=== PATIENT | male | born 1950 | race Caucasian/White ===

== ENCOUNTER 2021-03-09 11:11 | Emergency (ER) | payer MEDICARE, OTHER ==
[2021-03-09 11:50] VITALS: BP 134/78; PULSE 83; O2SAT 99
[2021-03-09 12:30] LABS: Appearance CLEAR (CLEAR); Bilirubin NEGATIVE (NEGATIVE); Blood NEGATIVE Ery/ul (0-5); Glucose 150 mg/dL (NEGATIVE); Ketones NEGATIVE (NEGATIVE); Leukocyte Esterase NEGATIVE (NEGATIVE); Mucus SLIGHT /HPF (NEGATIVE); Nitrite NEGATIVE (NEGATIVE); Protein,Urine Dip NEGATIVE (Negative); Specific Gravity 1.026 (1.005-1.025); Urobilinogen NEGATIVE mg/dL (0-1); WBC 0-2 /HPF (0-5)
[2021-03-09 12:33] LABS: Bacteria NONE SEEN /HPF (NEGATIVE)
--- NOTE | 2021-03-09 12:40 | XRAY ---
Indication: Double vision 3 days. Multiple contiguous axial images obtained through the head without contrast. Comparison: None Normal appearing brain parenchyma, ventricles, and bony calvarium for patient's age. Visualized paranasal sinuses and mastoid air cells are clear. Impression: Normal CT head without contrast exam.
[2021-03-09 12:48] LABS: Absolute Neutrophil Ct (ANC) 2.78 (1.4-6.9); BASOPHIL % 0.8 % (0.0-0.4); Basophil (Absolute #) 0.03 (0-0.4); Eosinophil % 1.9 % (0.00-5.0); Eosinophil (Absolute #) 0.07 (0-0.5); Hematocrit 36.7 % (42-50); Hemoglobin 11.9 gm/dl (12.5-18.0); Lymphocyte (Absolute #) 0.47 (1.0-4.6); Mean Cell Volume 93.6 fl (78-100); Mean Corpuscular Hemoglobin 30.4 pg (26-32); Mean Corpuscular Hgb Concent. 32.4 g/dl (32-36); Mean Platelet Volume 9.1 fl (7.5-11.0); Monocyte (Absolute #) 0.26 (0.0-1.3); Monocytes % 7.2 % (0.0-12.0); Neutrophil % 77.1 % (36.0-66.0); Platelet Count 208 K/mm3 (150-450); Red Blood Count 3.92 M/mm3 (4.1-5.6); Red Cell Distribution Width 13.9 % (11.5-14.0); White Blood Count 3.6 K/mm3 (4.0-10.5)
--- NOTE | 2021-03-09 12:51 | ERPHSYRPT ---
- History of Present Illness Time Seen by Provider: 03/09/21 11:23 Source: patient Exam Limitations: no limitations Patient Subjective Stated Complaint: Pt has prostate cancer and it had metastasized to his spine last year and now he has double vision and he called his oncologist and he wanted him to come here and get an MRI Triage Nursing Assessment: Pt was brought to the ER by his daughter, erin little, rates headache as 03/26, has had a dull headache on the right side for the past 3 weeks, pulses normal, denies any other issues Physician History: 70 years old male with history of hyperlipidemia, diabetes mellitus, prostate cancer status post resection, chemo and later metastasis to spine treated with radiation therapy presented in the ER with chief complaint of double vision off and on for last 1 week. Patient reports initially it was on the right eye and then gradually having in both eye. Initially was getting better with closing 1 eye but it is not going away with closing either eye. Denies any numbness tingling or focal weakness. No difficulty speech. Also complaining of mild dull aching headache on the right side temporal area. No chest pain palpitations or shortness of breath reported. No difficulty ambulation. Patient called her radiation oncologist who wanted to have work-up done incl uding MRIs to rule out mets. Timing/Duration: week(s) (1), intermittent, gradual onset, worse Severity: moderate Character of Deficits: other (Double vision) Deficits: no difficulties Baseline/Normal Cognition: alert oriented x 3 Current Cognition: alert oriented x 3 Associated Symptoms: vision changes, headache, No loss of consciousness, No nausea, No vomiting, No weakness, No insomnia, No numbness/tingling in legs/feet, No paresthesia, No seizures, No slurred speech, No trouble walking, No chest pain Allergies/Adverse Reactions: No Known Drug Allergies Allergy (Verified 03/09/21 11:50) Home Medications: Aspirin 81 mg PO DAILY 03/09/21 [History] Atorvastatin Calcium 20 mg PO DAILY 03/09/21 [History] Metformin HCl 500 mg [Glucophage 500 MG] 500 mg PO BIDWM 03/09/21 [History] Travel Risk - International Travel Have you traveled outside of the country in past 3 weeks: No - Coronavirus Screening Are you exhibiting any of the following symptoms?: No Close contact with a COVID-19 positive Pt in past 14-21 Days: No - Vaccine Status Have you recieved a Covid-19 vaccination: Yes 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 - Vaccination Dates Date of 2cond Vaccination (if applicable): 10/19/2020 - Review of Systems Constitutional: No Symptoms Eyes: Vision Changes Ears, Nose, & Throat: No Symptoms Respiratory: No Symptoms Cardiac: No Symptoms Abdominal/Gastrointestinal: No Symptoms Genitourinary Symptoms: No Symptoms Musculoskeletal: No Symptoms Skin: No Symptoms Neurological: Headache Psychological: No Symptoms Endocrine: No Symptoms Hematologic/Lymphatic: No Symptoms Immunological/Allergic: No Symptoms - Past Medical History Pertinent Past Medical History: Yes Cardiac History: High Cholesterol Endocrine Medical History: Diabetes Type II Male Reproductive Disorders: Prostate Cancer - Past Surgical History Past Surgical History: Yes Male Surgical History: Prostate Surgery - Social History Smoking Status: Never smoker Exposure to second hand smoke: No Drug Use: none Patient Lives Alone: No - Nursing Vital Signs Nursing Vital Signs: Initial Vital Signs Temperature 96.3 F 03/09/21 11:49 Pulse Rate 83 03/09/21 11:49 Blood Pressure 134/78 03/09/21 11:49 O2 Sat by Pulse Oximetry 99 03/09/21 11:49 Pain Scale Pain Intensity 1 - Alee Coma Scale Best Eye Response (Alee): (4) open spontaneously Best Verbal Response (Carlton): (5) oriented Best Motor Response (Alee): (6) obeys commands Alee Total: 15 - Physical Exam General Appearance: no apparent distress, alert Eye Exam: bilateral eye: normal inspection, PERRL, EOMI Ears, Nose, Throat Exam: normal ENT inspection, pharynx normal Neck Exam: normal inspection, non-tender, supple, full range of motion Respiratory: normal breath sounds, lungs clear Cardiovascular: regular rate/rhythm, normal heart sounds Gastrointestinal: soft, normal bowel sounds, No tenderness Back Exam: normal inspection, normal range of motion Extremity Exam: normal inspection, normal range of motion Mental Status: alert, oriented x 3, cooperative packager and strapper Exam: normal hearing, normal speech, PERRL (Without bruit), No facial asymmetry (Yeah) Coordination/Gait: normal finger to nose, normal gait, normal cerebellar function, negative Romberg's sign DTR: bicep (R): 2+, bicep (L): 2+, knee (R): 2+, knee (L): 2+ Skin Exam: normal color SpO2 Interpretation: normal SpO2: 99 O2 Delivery: Room Air - Course EKG Interpreted by Me: RATE (82), Sinus Rhythm, NORMAL AXIS, NORMAL INTERVALS, Non-specific ST Changes Ordered Tests: Active Orders 24 hr Category Date Time Status EKG-ER Only STAT Care 03/09/21 12:17 Completed NPO (ED) STAT Care 03/09/21 12:16 Completed Visual Acuity STAT Care 03/09/21 11:39 Completed HEAD WITHOUT CONTRAST [CT] Stat Exams 03/09/21 12:16 Completed CBC W DIFF Stat Lab 03/09/21 12:41 Completed CMP Stat Lab 03/09/21 12:41 Received PROTIME WITH INR Stat Lab 03/09/21 12:41 Completed PTT Stat Lab 03/09/21 12:41 Completed TROPONIN Q3H Lab 03/09/21 12:30 Received TROPONIN Q3H Lab 03/09/21 15:30 Ordered TROPONIN Q3H Lab 03/09/21 18:30 Ordered TROPONIN Q3H Lab 03/09/21 21:30 Ordered UA W/RFX UR CULTURE Stat Lab 03/09/21 12:16 Completed Lab/Rad Data: Laboratory Result Diagrams 03/09/21 12:41 Laboratory Results 03/09/21 03/09/21 03/09/21 Range/Units 12:41 12:41 12:16 WBC 3.6 L (4.0-10.5) K/mm3 RBC 3.92 L (4.1-5.6) M/mm3 Hgb 11.9 L (12.5-18.0) gm/dl Hct 36.7 L (42-50) % MCV 93.6 (78-100) fl MCH 30.4 (26-32) pg MCHC 32.4 (32-36) g/dl RDW 13.9 (11.5-14.0) % Plt Count 208 (150-450) K/mm3 MPV 9.1 (7.5-11.0) fl Gran % 77.1 H (36.0-66.0) % Eos # (Auto) 0.07 (0-0.5) Absolute Lymphs (auto) 0.47 L (1.0-4.6) Absolute Monos (auto) 0.26 (0.0-1.3) Lymphocytes % 13.0 L (24.0-44.0) % Monocytes % 7.2 (0.0-12.0) % Eosinophils % 1.9 (0.00-5.0) % Basophils % 0.8 (0.0-0.4) % Absolute Granulocytes 2.78 (1.4-6.9) Basophils # 0.03 (0-0.4) PT 11.9 (9.4-12.5) SECONDS INR 1.01 (0.8-3.0) APTT 26.2 (25.1-36.5) SECONDS Urine Color YELLOW (YELLOW) Urine Appearance CLEAR (CLEAR) Urine pH 5.0 (5-6) Ur Specific [place] 1.026 (1.005-1.025) Urine Protein NEGATIVE (Negative) Urine Ketones NEGATIVE (NEGATIVE) Urine Blood NEGATIVE (0-5) Clint/ul Urine Nitrite NEGATIVE (NEGATIVE) Urine Bilirubin NEGATIVE (NEGATIVE) Urine Urobilinogen NEGATIVE (0-1) mg/dL Ur Leukocyte Esterase NEGATIVE (NEGATIVE) Urine WBC (Auto) 0-2 (0-5) /HPF Urine RBC (Auto) NONE (0-2) /HPF U Epithel Cells (Auto) NONE (FEW) /HPF Urine Bacteria (Auto) NONE SEEN (NEGATIVE) /HPF Urine Mucus (Auto) SLIGHT (NEGATIVE) /HPF Urine Culture Reflexed NO (NO) Urine Glucose 150 (NEGATIVE) mg/dL - Progress Progress: unchanged Progress Note: 03/09/21 12:49 70 years old is evaluated for diplopia. No other neuro deficit. CT head is negative. Discussed with Dr. Chong Tran oncologist, reviewed history, he recommended obtaining MRI with and without contrast because of concern for mets. No MRI services are available here until next week because of holidays. Wanted me to transfer patient to [facility] at this point. He has called [facility] and they can call in MRI if patient is there. He recommended patient to be discharged and he will walk into [facility] ER. Patient has no difficulty ambulation and no other neuro symptoms. Patient is here and I have discussed with her and patient as well and she is going to take him to [facility] ER now which is unfortunately the only way to get MRIs done. 03/09/21 12:51 Discussed with : Other Counseled pt/family regarding: lab results, diagnosis, need for follow-up, rad results - Departure Departure Disposition: Home Clinical Impression: Diplopia Condition: Stable Critical Care Time: No Referrals: GURVINDER COBIAN MD [Primary Care Provider] - Follow up/PCP as directed
[2021-03-09 12:55] LABS: INR 1.01 (0.8-3.0); PROTIME 11.9 SECONDS (9.4-12.5)
[2021-03-09 12:58] LABS: PTT 26.2 SECONDS (25.1-36.5)
[2021-03-09 13:10] LABS: ALBUMIN 4.3 g/dL (3.5-5.0); ALKALINE PHOSPHATASE 74 U/L (38-126); BLOOD UREA NITROGEN 13 mg/dL (9-20); CHLORIDE 102 mmol/L (98-107); Calcium 8.9 mg/dL (8.4-10.2); Carbon Dioxide 28 mmol/L (22-30); Creatinine 1 0.66 mg/dL (0.66-1.25); EST GLOMERULAR FILTRATION RATE > 60.0 ML/MIN; Glucose 161 mg/dL (74-106); Potassium 3.9 mmol/L (3.5-5.1); SGOT/AST 27 U/L (17-59); SGPT/ALT 20 U/L (0-50); SODIUM 138 mmol/L (137-145); Total Protein 6.7 g/dL (6.3-8.2)
== END 2021-03-09 13:17 | disposition home or self-care (01) ==
LOC: ED 11:11
DX: H53.2 Diplopia (principal); R51.9 Headache, unspecified; E78.5 Hyperlipidemia, unspecified; E11.9 Type 2 diabetes mellitus without complications; Z79.84 Long term (current) use of oral hypoglycemic drugs
CPT/HCPCS: 36415; 70450; 80053; 81001; 84484; 85025; 85610; 85730; 93005; 99284

== ENCOUNTER 2024-11-27 07:23 | Emergency (ER) | payer MEDICARE, OTHER ==
--- NOTE | 2024-11-27 07:28 | ERPHSYRPT ---
- History of Present Illness Time Seen by Provider: 11/27/24 07:28 Source: patient, family Exam Limitations: no limitations Physician History: This is a 74-year-old white male patient who arrives by private vehicle and is a patient Dr. Cobian and has a history of prostate cancer status post chemoradiation. The last radiation treatment was 2 or 3 years ago. Patient was seen in our emergency department on 11/10/2024 with similar symptoms. Except at that time he had hematuria. This time he does not have hematuria. He does have suprapubic pain and pressure. He has reported to us that the last urine output was last evening. Patient is currently not on any antibiotics. On 11/10/2024, he was given a prescription for Cipro antibiotic. They performed a straight cath last visit. He does not want a Barry catheter in place. He will agree to the straight cath to obtain urine specimen as well as to drain his bladder. Patient has a history of hypertension, diabetes, hyperlipidemia. Patient has no known drug allergies. He denies chest pain he knee denies shortness of breath. He has not had a fever. Timing/Duration: today Activites at Onset: none Quality: pressure (Suprapubic region) Onset Location: suprapubic Severity of Pain-Max: mild (To moderate) Severity of Pain-Current: mild (To moderate) Modifying Factors: Improves With: nothing Associated Symptoms: other (Urinary retention with suprapubic pressure) Sexual intercourse history: non-contributory Allergies/Adverse Reactions: No Known Drug Allergies Allergy (Verified 11/27/24 07:34) Home Medications: Aspirin 81 mg PO DAILY 03/09/21 [History] Calcium Carbonate [Calcium] 1,200 mg PO DAILY 11/10/24 [History] Gabapentin 300 mg PO BID 11/10/24 [History] Metformin HCl 850 mg [Glucophage 850 MG] 850 mg PO BID 11/10/24 [History] Rosuvastatin Calcium 5 mg PO DAILY 11/10/24 [History] Hx Tetanus, Diphtheria Vaccination/Date Given: No Hx Influenza Vaccination/Date Given: No Hx Pneumococcal Vaccination/Date Given: No Travel Risk - International Travel Have you traveled outside of the country in past 3 weeks: No - Emerging Infectious Disease Are you exhibiting symptoms associated with any current EIDs: No - Past Medical History Pertinent Past Medical History: Yes Cardiac History: High Cholesterol Endocrine Medical History: Diabetes Type II Male Reproductive Disorders: Prostate Cancer - Past Surgical History Past Surgical History: Yes Male Surgical History: Prostate Surgery - Social History Smoking Status: Never smoker Exposure to second hand smoke: No Drug Use: none - Social Determinants of Health Will the patient participate in the screening: Yes Do you worry about a steady place to live?: No In the past 12 months,have you had to go without utilities?: No Transportation Issues: No Has anyone in your support network made you feel unsafe?: No Have you or anyone in your house had to go w/o enough food: No - Review of Systems Constitutional: No Symptoms Eyes: No Symptoms Ears, Nose, & Throat: No Symptoms Respiratory: No Symptoms Cardiac: No Symptoms Abdominal/Gastrointestinal: Abdominal Pain (Suprapubic pressure) Genitourinary Symptoms: Urinary Retention Musculoskeletal: No Symptoms Skin: No Symptoms Neurological: No Symptoms Psychological: No Symptoms Endocrine: No Symptoms Hematologic/Lymphatic: No Symptoms Immunological/Allergic: No Symptoms All Other Systems: Reviewed and Negative - Nursing Vital Signs Nursing Vital Signs: Initial Vital Signs Temperature 97.3 F 11/27/24 07:29 Pulse Rate 103 H 11/27/24 07:29 Blood Pressure 167/109 11/27/24 07:29 O2 Sat by Pulse Oximetry 99 11/27/24 07:29 Pain Scale Pain Intensity 8 - Physical Exam General Appearance: no apparent distress, alert Eye Exam: PERRL/EOMI, eyes nml inspection Ears, Nose, Throat Exam: normal ENT inspection, moist mucous membranes Neck Exam: normal inspection, non-tender, supple, full range of motion Respiratory Exam: normal breath sounds, lungs clear, airway intact, No chest tenderness, No respiratory distress Cardiovascular Exam: regular rate/rhythm, normal heart sounds, normal peripheral pulses Gastrointestinal/Abdomen Exam: soft, normal bowel sounds, tenderness (Suprapubic pressure) Rectal Exam: not done Back Exam: normal inspection, normal range of motion, No CVA tenderness, No vertebral tenderness Extremity Exam: normal inspection, normal range of motion, pelvis stable Neurologic Exam: alert, oriented x 3, cooperative, client support associate II-XII nml as tested, nml cerebellar function, nml station & gait, sensation nml Skin Exam: normal color, warm, dry Lymphatic Exam: No adenopathy SpO2 Interpretation: normal O2 Delivery: Room Air - Course Nursing assessment & vital signs reviewed: Yes Ordered Tests: Active Orders 24 hr Category Date Time Status Straight Cath STAT Care 11/27/24 07:37 Active CULTURE,URINE Stat Lab 11/27/24 09:01 Received UA W/RFX UR CULTURE Stat Lab 11/27/24 09:01 Completed Lab/Rad Data: Laboratory Results 11/27/24 Range/Units 09:01 Urine Color Yellow (Yellow) Urine Appearance Clear (Clear) Urine pH 5.5 (4.6-8.0) Ur Specific [place] 1.020 (1.005-1.030) Urine Protein Trace A (Negative) Urine Glucose (UA) Negative (Negative) mg/dL Urine Ketones Trace A (Negative) Urine Blood Moderate A (Negative) Urine Nitrite Negative (Negative) Urine Bilirubin Negative (Negative) Urine Urobilinogen 1.0 A (0.2) mg/dL Ur Leukocyte Esterase Trace A (Negative) U Hyaline Cast (Auto) 3-5 A (0-2) /LPF Urine Microscopic RBC 51-100 A (0-5) /HPF Urine Microscopic WBC 0-2 (0-5) /HPF Ur Epithelial Cells None Seen (None Seen) /HPF Urine Bacteria None Seen (None Seen) /HPF Urine Culture Reflexed ORDERED SEPARATELY (NO) - Progress Progress: improved, re-examined Progress Note: 11/27/24 07:39 My medical decision making and the assignment of low complexity of this patient's medical issue today is based on review of the patient's past medical history, review the patient's medication list, review the patient drug allergy list, history present illness and physical findings on examination. The workup in this patient will be straight catheterization to relieve the bladder pressure, drained the bladder and obtain urine specimen for urinalysis. Differential diagnosis includes but is not limited to urinary tract infection, prostatitis, cystitis, urinary retention 11/27/24 09:39 I interpreted the patient's laboratory data results. Based on the laboratory data results, there are no acute, emergent medical issues. I reexamined the patient and he has significant relief after straight catheterization. He is actually now making urine and passing urine on his own. It did appear so there might been a blood clot present that actually caused the temporary urinary retention. I will not place him on any antibiotics. Will wait for the culture results. There are no bacteria seen and no evidence of an acute urinary tract infection at this time. Counseled pt/family regarding: lab results, diagnosis, need for follow-up Medical Desision Making - Diagnostic Testing Diagnostic test were ordered, analyzed, and reviewed by me: Yes - Risk of complications Low Risk: Low risk of morbidity from additional dx testing or treatment - Departure Departure Disposition: Home Clinical Impression: Urinary retention Condition: Stable Critical Care Time: No Referrals: GURVINDER COBIAN MD [Primary Care Provider, [facility]] - Follow up/PCP as directed Additional Instructions: Drink plenty of fluids. Call your urologist and primary care provider on 11/29/2024, to make a follow-up to be seen in the next 3 to 5 days. In addition, discussed the possibility of arranging self catheterization if this scenario recurs
[2024-11-27 07:34] VITALS: PULSE 103; TEMP 97.3
[2024-11-27 09:13] LABS: Glucose, Urine Negative (Negative); Protein,Urine Dip Trace (Negative); RBC 51-100 /HPF (0-5); WBC 0-2 /HPF (0-5)
[2024-11-27 10:14] VITALS: BP 135/78; O2SAT 96
== END 2024-11-27 10:21 | disposition home or self-care (01) ==
LOC: ED 07:23
DX: R33.9 Retention of urine, unspecified (principal); R10.2 Pelvic and perineal pain; I10 Essential (primary) hypertension; E11.9 Type 2 diabetes mellitus without complications; Z79.84 Long term (current) use of oral hypoglycemic drugs; Z79.899 Other long term (current) drug therapy

== ENCOUNTER 2024-12-03 09:15 | Emergency (ER) | payer MEDICARE, OTHER ==
[2024-12-03 09:31] VITALS: BP 152/91; PULSE 107; RESP 18; TEMP 97.8; O2SAT 98
--- NOTE | 2024-12-03 09:35 | ERPHSYRPT ---
- History of Present Illness Time Seen by Provider: 12/03/24 09:29 Source: patient Exam Limitations: no limitations Physician History: This is a 74-year-old white male patient who returns to the emergency department with recurrent urinary retention. We have seen him 3 times in the emergency department for the same issue. He is a patient of Dr. Cobian. He has an appointment to see a urologist within the next couple of weeks. His last visit here was on 11/27/2024. At his last time of urination was around midnight, approximately 9-1/2 hours ago. Patient is feeling a lot of pressure and discomfort in the suprapubic region. Again, he only wants to have straight c atheterization and the catheter not to be left in place. Patient has a history of diabetes and hyperlipidemia. 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 Timing/Duration: today Activites at Onset: none Quality: aching, pressure Onset Location: suprapubic Severity of Pain-Max: moderate Severity of Pain-Current: moderate Modifying Factors: Improves With: nothing Associated Symptoms: abdominal pain (Suprapubic region) Sexual intercourse history: non-contributory Allergies/Adverse Reactions: No Known Drug Allergies Allergy (Verified 11/27/24 07:34) Home Medications: Aspirin 81 mg PO DAILY 03/09/21 [History] Calcium Carbonate [Calcium] 1,200 mg PO DAILY 11/10/24 [History] Gabapentin 300 mg PO BID 11/10/24 [History] Metformin HCl 850 mg [Glucophage 850 MG] 850 mg PO BID 11/10/24 [History] Rosuvastatin Calcium 5 mg PO DAILY 11/10/24 [History] Hx Tetanus, Diphtheria Vaccination/Date Given: No Hx Influenza Vaccination/Date Given: No Hx Pneumococcal Vaccination/Date Given: No Travel Risk - International Travel Have you traveled outside of the country in past 3 weeks: No - Emerging Infectious Disease Are you exhibiting symptoms associated with any current EIDs: No - Past Medical History Pertinent Past Medical History: Yes Cardiac History: High Cholesterol Endocrine Medical History: Diabetes Type II Male Reproductive Disorders: Prostate Cancer - Past Surgical History Past Surgical History: Yes Male Surgical History: Prostate Surgery - Social History Smoking Status: Never smoker Exposure to second hand smoke: No Drug Use: none - Social Determinants of Health Will the patient participate in the screening: Yes Do you worry about a steady place to live?: No In the past 12 months,have you had to go without utilities?: No Transportation Issues: No Has anyone in your support network made you feel unsafe?: No Have you or anyone in your house had to go w/o enough food: No - Review of Systems Constitutional: No Symptoms Eyes: No Symptoms Ears, Nose, & Throat: No Symptoms Respiratory: No Symptoms Cardiac: No Symptoms Abdominal/Gastrointestinal: Abdominal Pain (Suprapubic region pressure and achiness) Genitourinary Symptoms: Urinary Retention Musculoskeletal: No Symptoms Skin: No Symptoms Neurological: No Symptoms Psychological: No Symptoms Endocrine: No Symptoms Hematologic/Lymphatic: No Symptoms Immunological/Allergic: No Symptoms All Other Systems: Reviewed and Negative - Nursing Vital Signs Nursing Vital Signs: Initial Vital Signs Temperature 97.8 F 12/03/24 09:16 Pulse Rate 107 H 12/03/24 09:16 Respiratory Rate 18 12/03/24 09:16 Blood Pressure 152/91 12/03/24 09:16 O2 Sat by Pulse Oximetry 98 12/03/24 09:16 Pain Scale Pain Intensity 3 - Physical Exam General Appearance: no apparent distress, alert, anxiety, thin Eye Exam: PERRL/EOMI, eyes nml inspection Ears, Nose, Throat Exam: normal ENT inspection, moist mucous membranes Neck Exam: normal inspection, non-tender, supple, full range of motion Respiratory Exam: normal breath sounds, lungs clear, airway intact, No chest tenderness, No respiratory distress Cardiovascular Exam: regular rate/rhythm, normal heart sounds, normal peripheral pulses Gastrointestinal/Abdomen Exam: soft, normal bowel sounds, tenderness (Suprapubic tenderness and achiness), No guarding, No rebound Rectal Exam: not done Back Exam: normal inspection, normal range of motion, No CVA tenderness, No vertebral tenderness Extremity Exam: normal inspection, normal range of motion, pelvis stable Neurologic Exam: alert, oriented x 3, cooperative, improvement leader II-XII nml as tested, nml cerebellar function, nml station & gait, sensation nml Skin Exam: normal color, warm, dry Lymphatic Exam: No adenopathy SpO2 Interpretation: normal O2 Delivery: Room Air - Course Nursing assessment & vital signs reviewed: Yes - Progress Progress: unchanged, re-examined Progress Note: 12/03/24 09:33 My medical decision making and the assignment of low complexity of this patient's medical issue today is based on review of the patient's past medical history, review the patient's medication list, reviewed patient drug allergy list, history of present illness and physical findings on examination. The patient workup is based on the desire of what the patient wants. That is, straight catheterization to drain his bladder. That is the only thing he wants performed. I do not feel this is unreasonable. Differential diagnosis includes was not limited to urinary retention, bladder spasm, urinary bladder/urethral stenosis 12/03/24 10:[address] a Barry catheter/straight catheter in order to drain his urinary bladder. The nurse attempted several times as did I. Patient needs to be seen by a urologist today. He does not want to go by ambulance. He has someone that can transport him. We will make phone calls to locate the urologist that can see this patient today. Counseled pt/family regarding: diagnosis, need for follow-up Medical Desision Making - Diagnostic Testing Diagnostic test were ordered, analyzed, and reviewed by me: No - Risk of complications Low Risk: Low risk of morbidity from additional dx testing or treatment - Departure Departure Disposition: Home Clinical Impression: Urinary retention Condition: Stable Critical Care Time: No Referrals: GURVINDER COBIAN MD [[facility] Care Provider, [facility]] - Follow up/PCP as directed Additional Instructions: Drink plenty of fluids. Take your medications as prescribed. Keep your urology appointment that you have scheduled. Return to the emergency department if symptoms recur
[2024-12-03] MEDS: NORCO 5/325 MG PO ONE (10:32)
[2024-12-03] MEDS ORDERED: NORCO 5/325 MG ONE (10:32)
== END 2024-12-03 10:40 | disposition home or self-care (01) ==
LOC: ED 09:15
DX: R33.9 Retention of urine, unspecified (principal); E11.9 Type 2 diabetes mellitus without complications; Z79.84 Long term (current) use of oral hypoglycemic drugs; Z79.899 Other long term (current) drug therapy

== ENCOUNTER 2024-12-17 08:31 | Emergency (ER) | payer MEDICARE, OTHER ==
[2024-12-17 08:43] VITALS: PULSE 111; TEMP 97.4; O2SAT 98
--- NOTE | 2024-12-17 08:58 | ERPHSYRPT ---
- History of Present Illness Time Seen by Provider: 12/17/24 08:45 Source: patient Patient Subjective Stated Complaint: pt was told by urologist to remove catheter today and pt was unable to do it Triage Nursing Assessment: PT brought self to the ER, hypertensive, tachycardic, denies pain, pulses normal, skin n/w/d, blood in catheter tubing and pt states that was not there prior to him and his attempting to remove it this morning, denies any other issues, doesn't appear to be in any distress Physician History: Patient reports that he had a cystoscope and proceduere either Friday or Friday. He was instructed to remove the catheter this morning. His tried, but did not get much fluid out of the balloon. He came for help removing the catheter. Allergies/Adverse Reactions: No Known Drug Allergies Allergy (Verified 12/17/24 08:44) Home Medications: Aspirin 81 mg PO DAILY 03/09/21 [History] Calcium Carbonate [Calcium] 1,200 mg PO DAILY 11/10/24 [History] Gabapentin 300 mg PO BID 11/10/24 [History] Metformin HCl 850 mg [Glucophage 850 MG] 850 mg PO BID 11/10/24 [History] Rosuvastatin Calcium 5 mg PO DAILY 11/10/24 [History] Hx Tetanus, Diphtheria Vaccination/Date Given: No Hx Influenza Vaccination/Date Given: No Hx Pneumococcal Vaccination/Date Given: No Travel Risk - International Travel Have you traveled outside of the country in past 3 weeks: No - Emerging Infectious Disease Are you exhibiting symptoms associated with any current EIDs: No - Past Medical History Pertinent Past Medical History: Yes Cardiac History: High Cholesterol Endocrine Medical History: Diabetes Type II History: Other (Prostate cancer post-radiation, Recent cystoscope and proc edure) Male Reproductive Disorders: Prostate Cancer - Past Surgical History Past Surgical History: Yes Male Surgical History: Prostate Surgery - Social History Smoking Status: Never smoker Exposure to second hand smoke: No Drug Use: none - Social Determinants of Health Will the patient participate in the screening: Yes Do you worry about a steady place to live?: No Do you have any problems with any of the following?: No known problems In the past 12 months,have you had to go without utilities?: No Transportation Issues: No Has anyone in your support network made you feel unsafe?: No Have you or anyone in your house had to go w/o enough food: No - Review of Systems Constitutional: No Fever Respiratory: No Symptoms Cardiac: No Symptoms Abdominal/Gastrointestinal: No Abdominal Pain Genitourinary Symptoms: Hematuria (Hematuria only since the patient's tried to remove the catheter), Urinary Retention - Nursing Vital Signs Nursing Vital Signs: Initial Vital Signs Temperature 97.4 F 12/17/24 08:38 Pulse Rate 111 H 12/17/24 08:38 Blood Pressure 147/102 12/17/24 08:38 O2 Sat by Pulse Oximetry 98 12/17/24 08:38 Pain Scale Pain Intensity 0 - Physical Exam General Appearance: mild distress Respiratory Exam: normal breath sounds Cardiovascular Exam: tachycardia Gastrointestinal/Abdomen Exam: soft, No tenderness Male Genital Exam: normal genitalia (Baker catheter in place, gross hematuria) Extremity Exam: normal inspection Skin Exam: normal color SpO2: 98 - Progress Progress: improved (Removed baker catheter. Large clot in the proximal tubing. Instructed the patient to drink lots of water so that he will know soon if he is able to empty his bladder. Instructed the patient to present to Dr. De La O's office or return immediately if he is unable to urinate.) - Departure Departure Disposition: Home Clinical Impression: Urinary retention Hematuria Qualifiers: Hematuria type: gross Qualified Code(s): R31.0 - Gross hematuria Condition: Stable Critical Care Time: No Referrals: GURVINDER COBIAN MD [Primary Care Provider, [facility]] - Follow up/PCP as directed JONEL DE LA O [COURTESY STAFF, UROLOGY] - Follow up/PCP as directed Additional Instructions: Drink lots of water to know if you will be able to urinate since the catheter is out. If you are unable to urine, please go to Dr. De La O's office or return to the emergency department because a catheter may need to be placed again.
[2024-12-17 09:06] VITALS: BP 139/92
== END 2024-12-17 09:05 | disposition home or self-care (01) ==
LOC: ED 08:31
DX: Z46.6 Encounter for fitting and adjustment of urinary device (principal); R31.0 Gross hematuria